=== PATIENT | female | born 1995 | race Caucasian/White ===

== ENCOUNTER 2016-03-21 09:29 | Outpatient (CLI) | payer MEDICAID ==
[~2016-03-21] VITALS: Ht 165.1 cm; Wt 93.6 kg
[2016-03-21 09:37] VITALS: BP 130/81; PULSE 106; TEMP 99
[2016-03-21 10:20] VITALS: BP 122/79; PULSE 110
[2016-03-21 10:21] LABS: HEMATOCRIT 35.3 % (37.0-47.0); HEMOGLOBIN 11.9 g/dl (12.5-16.0); MEAN CELL VOLUME 81 fl (80.0-100.0); MEAN CORPUSCULAR HEMOGLOBIN 27 pg (27.0-31.0); MEAN CORPUSCULAR HGB CONC 34 g/dl (33.0-37.0); MEAN PLATELET VOLUME 11.8 fl (7.4-10.4); PLATELET COUNT 159 K/mm3 (130-400); RED BLOOD COUNT 4.35 M/mm3 (4.10-5.30); WHITE BLOOD COUNT 15.8 K/mm3 (4.8-10.8)
[2016-03-21 10:22] LABS: ADD PATHOLOGY DIFF REVIEW NO
[2016-03-21 10:25] LABS: PH 7 (5-8); SQUAMOUS EPITHELIAL 0-2 /hpf; URINE APPEARANCE Hazy; URINE BACTERIA None Seen /hpf; URINE BILIRUBIN Negative (NEGATIVE); URINE BLOOD 1+ (NEGATIVE); URINE COLOR Yellow; URINE GLUCOSE Negative (NEGATIVE); URINE KETONE Negative (NEGATIVE); URINE UROBILINOGEN Negative (NEGATIVE)
[2016-03-21 10:38] LABS: BAND 1 % (0-10); METAMYELOCYTE 1 % (0-0); NEUTROPHILS 82 % (42.0-75.2); TOTAL CELLS COUNTED 100
[2016-03-21 10:41] LABS: MICROCYTOSIS 2+; POLYCHROMASIA 1+
[2016-03-21 10:46] LABS: ADJUSTED CALCIUM 9.7 mg/dL (8.4-10.2); ALBUMIN 3.6 gm/dL (3.5-5.0); BILIRUBIN,TOTAL 0.5 mg/dL (0.0-1.0); CALCIUM 9.4 mg/dL (8.4-10.2); CREATININE, serum 0.42 mg/dL (0.52-1.25); POTASSIUM 3.8 mmol/L (3.4-5.0); TOTAL PROTEIN 6.7 gm/dL (6.4-8.2)
[2016-03-21 11:30] VITALS: BP 115/72; PULSE 106
== END 2016-03-21 11:45 | disposition home or self-care (01) ==
LOC: LDRO 09:29 → LDR 09:56 → LDRO 11:45
PROVIDERS: Obstetrics & Gynecology
DX: O26.893 Other specified pregnancy related conditions, third trimester (principal); M54.89 Other dorsalgia; O21.0 Mild hyperemesis gravidarum; Z3A.35 35 weeks gestation of pregnancy
CPT/HCPCS: OP

== ENCOUNTER 2016-03-24 11:39 | Inpatient (IN) | payer MEDICAID ==
[~2016-03-24] VITALS: Ht 165.1 cm; Wt 93.2 kg
[2016-04-17] VITALS (7 sets, daily range): BP systolic 118–139; BP diastolic 68–95; PULSE 101–123; TEMP 98.7–98.8
[2016-04-17 19:59] LABS: BASO % 0.2 % (0.0-2.0); EOS # 0.1 (0.0-0.7); EOS % 0.6 % (0-4.0); GRAN # 10.6 (1.4-6.5); GRAN % 76.5 % (42.2-75.2); LYMPH # 2.1 (1.2-3.4); LYMPH % 15.1 % (20.0-51.0); MEAN CELL VOLUME 78 fl (80.0-100.0); MEAN CORPUSCULAR HGB CONC 34 g/dl (33.0-37.0); MEAN PLATELET VOLUME 12.3 fl (7.4-10.4); MONO # 0.9 (0.1-0.6); MONO % 6.3 % (1.7-9.3); PLATELET COUNT 167 K/mm3 (130-400); RED BLOOD COUNT 4.25 M/mm3 (4.10-5.30); REDCELL DISTRIBUTION WIDTH-CV 14.9 % (11.5-14.5); WHITE BLOOD COUNT 13.9 K/mm3 (4.8-10.8)
[2016-04-17 20:08] LABS: HEMATOCRIT 33.3 % (37.0-47.0); HEMOGLOBIN 11.3 g/dl (12.5-16.0); MEAN CORPUSCULAR HEMOGLOBIN 27 pg (27.0-31.0)
[2016-04-18] VITALS (66 sets, daily range): BP systolic 111–160; BP diastolic 58–104; PULSE 90–166; TEMP 98–98.3
[2016-04-19] VITALS: BP 119/68; PULSE 112
[2016-04-19 00:30] VITALS: BP 105/54; PULSE 110; TEMP 98.1
[2016-04-19 04:00] VITALS: BP 106/55; PULSE 98; TEMP 97.6
[2016-04-19 07:00] VITALS: BP 117/62; PULSE 98; TEMP 97.8
[2016-04-19 07:55] LABS: BASO % 0.1 % (0.0-2.0); EOS # 0.1 (0.0-0.7); EOS % 0.3 % (0-4.0); GRAN # 16.4 (1.4-6.5); GRAN % 81.7 % (42.2-75.2); LYMPH % 9.9 % (20.0-51.0); MEAN CELL VOLUME 81 fl (80.0-100.0); MEAN CORPUSCULAR HGB CONC 33 g/dl (33.0-37.0); MEAN PLATELET VOLUME 12.5 fl (7.4-10.4); MONO # 1.5 (0.1-0.6); MONO % 7.3 % (1.7-9.3); PLATELET COUNT 166 K/mm3 (130-400); RED BLOOD COUNT 3.73 M/mm3 (4.10-5.30); REDCELL DISTRIBUTION WIDTH-CV 14.9 % (11.5-14.5)
[2016-04-19 07:56] LABS: HEMATOCRIT 30.2 % (37.0-47.0); HEMOGLOBIN 9.8 g/dl (12.5-16.0); MEAN CORPUSCULAR HEMOGLOBIN 26 pg (27.0-31.0); WHITE BLOOD COUNT 20.1 K/mm3 (4.8-10.8)
[2016-04-19] MEDS ORDERED: PERCOCET 325 MG1 TA2 PO (18:18)
[2016-04-19] MEDS ORDERED: IBU800 M1 PO (18:18)
[2016-04-19 20:45] VITALS: BP 107/71; PULSE 96; TEMP 98.2
[2016-04-20 06:55] VITALS: BP 105/64; PULSE 102; TEMP 98.1
[2016-04-20 15:32] VITALS: BP 125/78; PULSE 104; TEMP 98
== END 2016-04-20 17:47 | disposition home or self-care (01) | DRG 775 ==
LOC: LDR 04-17 08:31 → OB 04-19 05:20 → EDSTATUS 04-21 08:31 → LDRO 04-21 11:39
PROVIDERS: Obstetrics & Gynecology
PROC: 10E0XZZ Delivery of Products of Conception, External Approach (ICD-10-PCS; principal; 2016-04-18)
PROC: 0DQR0ZZ Repair Anal Sphincter, Open Approach (ICD-10-PCS; 2016-04-18)
DX: O13.3 Gestational [pregnancy-induced] hypertension without significant proteinuria, third trimester (principal); O70.20 Third degree perineal laceration during delivery, unspecified; Z3A.39 39 weeks gestation of pregnancy; O69.1XX0 Labor and delivery complicated by cord around neck, with compression, not applicable or unspecified; Z37.0 Single live birth
CPT/HCPCS: J2400; J2590; J7120

== ENCOUNTER 2018-02-15 07:16 | Inpatient (IN) | payer MEDICAID ==
[~2018-02-15] VITALS: Ht 165.1 cm; Wt 97.3 kg
[2018-02-15] VITALS (40 sets, daily range): BP systolic 110–160; BP diastolic 55–100; PULSE 79–123; TEMP 97.9–99.7
[~2018-02-15 07:16] MED LIST: IBU800 M1 PO; PERCOCET 325 MG1 TA2 PO
[2018-02-15 08:22] LABS: BASO % 0.4 % (0.0-2.0); EOS # 0.1 (0.0-0.7); EOS % 0.8 % (0-4.0); GRAN # 7.2 (1.4-6.5); GRAN % 71.7 % (42.2-75.2); HEMOGLOBIN 11.6 g/dl (12.5-16.0); LYMPH % 20.2 % (20.0-51.0); MEAN CELL VOLUME 76 fl (80.0-100.0); MEAN CORPUSCULAR HEMOGLOBIN 24 pg (27.0-31.0); MEAN CORPUSCULAR HGB CONC 32 g/dl (33.0-37.0); MEAN PLATELET VOLUME 12.7 fl (7.4-10.4); MONO # 0.6 (0.1-0.6); PLATELET COUNT 147 K/mm3 (130-400); RED BLOOD COUNT 4.87 M/mm3 (4.10-5.30); REDCELL DISTRIBUTION WIDTH-CV 15.2 % (11.5-14.5)
[2018-02-15 08:25] LABS: HEMATOCRIT 36.8 % (37.0-47.0)
[2018-02-15 10:56] LABS: COLLECTION METHOD CLEAN CATCH
[2018-02-15 11:04] LABS: MUCOUS Present /lpf; PH 6 (5-8); URINE APPEARANCE Clear; URINE BACTERIA None Seen /hpf; URINE BILIRUBIN Negative (NEGATIVE); URINE BLOOD Negative (NEGATIVE); URINE COLOR Yellow; URINE GLUCOSE Negative (NEGATIVE); URINE KETONE Negative (NEGATIVE); URINE LEUKOCYTE ESTERASE Negative (NEGATIVE); URINE NITRATE Negative (NEGATIVE); URINE PROTEIN(semi-quant) Negative (NEGATIVE); URINE RBC 0-2 /hpf; URINE UROBILINOGEN Negative (NEGATIVE); URINE WBC 0-2 /hpf
[2018-02-15 11:13] LABS: ALBUMIN 3.7 gm/dL (3.5-5.0); BILIRUBIN,TOTAL 0.3 mg/dL (0.0-1.0); CALCIUM 9.2 mg/dL (8.4-10.2); CREATININE, serum 0.42 mg/dL (0.52-1.25); POTASSIUM 3.9 mmol/L (3.4-5.0); TOTAL PROTEIN 6.7 gm/dL (6.4-8.2)
[2018-02-16 01:04] VITALS: BP 133/69; PULSE 99; TEMP 98.3
[2018-02-16 08:00] VITALS: BP 108/63; PULSE 90; TEMP 98.2
[2018-02-16] MEDS ORDERED: IBU600 MG PO (10:33)
[2018-02-16 12:28] VITALS: BP 112/68; PULSE 95; TEMP 97.9
[2018-02-16 16:21] VITALS: BP 115/74; PULSE 98; TEMP 98
[2018-02-16 21:40] VITALS: BP 99/61; PULSE 98; TEMP 97.8
[2018-02-17 08:10] VITALS: BP 116/73; PULSE 96; TEMP 98.2
== END 2018-02-17 12:00 | disposition home or self-care (01) | DRG 807 ==
LOC: LDR 07:16 → OB 07:16 → LDR 12:39 → OB 17:51
PROVIDERS: Obstetrics & Gynecology
PROC: 10E0XZZ Delivery of Products of Conception, External Approach (ICD-10-PCS; principal; 2018-02-15)
PROC: 3E033VJ Introduction of Other Hormone into Peripheral Vein, Percutaneous Approach (ICD-10-PCS; 2018-02-15)
PROC: 10907ZC Drainage of Amniotic Fluid, Therapeutic from Products of Conception, Via Natural or Artificial Opening (ICD-10-PCS; 2018-02-15)
DX: O13.4 Gestational [pregnancy-induced] hypertension without significant proteinuria, complicating childbirth (principal); Z37.0 Single live birth; Z3A.38 38 weeks gestation of pregnancy; O99.824 Streptococcus B carrier state complicating childbirth; O99.344 Other mental disorders complicating childbirth; F41.9 Anxiety disorder, unspecified
CPT/HCPCS: J2540; J2590; J7120